=== PATIENT | female | born 1985 | race Caucasian/White ===

== ENCOUNTER → 2018-03-18 | Outpatient (CLI) | payer SELFPAY ==
[~2018-03-18] MED LIST: NORCO 325 MG-51 TAB PO; SYNTHROID0.075 MG/T PO
== END ==
LOC: COL.RAD 11:51
DX: N93.8 Other specified abnormal uterine and vaginal bleeding (principal)

== ENCOUNTER → 2018-03-29 | Outpatient (CLI) | payer SELFPAY | LOC: COL.RAD 12:38 | DX: R79.89 Other specified abnormal findings of blood chemistry (principal); R10.11 Right upper quadrant pain ==

== ENCOUNTER 2019-10-05 16:25 | Emergency (ER) | payer SELFPAY ==
[~2019-10-05] VITALS: Ht 162.6 cm; Wt 63.2 kg
[2019-10-05 16:27] VITALS: BP 152/79; TEMP 97.7
[2019-10-05] MEDS ORDERED: MEDROL 4MG DOSPA4 MG PO (17:12)
[2019-10-05] MEDS ORDERED: FLEXERIL 1010 MG/TAB PO (17:12)
[2019-10-05] MEDS ORDERED: NORCO 325 MG-51 TAB PO (17:12)
[2019-10-05] MEDS ORDERED: LIDODERM 5% PATC1 EA TP (17:12)
[2019-10-05 17:38] VITALS: PULSE 106
== END 2019-10-05 17:38 | disposition home or self-care (01) ==
LOC: COL.ER 16:25
DX: M54.12 Radiculopathy, cervical region (principal)
CPT/HCPCS: J7512

== ENCOUNTER → 2021-07-17 | Outpatient (CLI) | payer SELFPAY ==
[~2021-07-17] MED LIST changes: +FLEXERIL 1010 MG/TAB PO; +LIDODERM 5% PATC1 EA TP; +MEDROL 4MG DOSPA4 MG PO
== END ==
LOC: COL.RAD 06:59
DX: E06.3 Autoimmune thyroiditis (principal)

== ENCOUNTER 2021-08-26 14:27 | Emergency (ER) | payer SELFPAY ==
[~2021-08-26] VITALS: Ht 162.6 cm; Wt 59.1 kg
[2021-08-26 15:06] VITALS: TEMP 98.1
[2021-08-26 19:06] LABS: BASO # 0.1 K/mm3 (0.0-0.2); BASO % 0.4 % (0.0-2.0); EOS # 0.1 K/mm3 (0.0-0.7); EOS % 0.7 % (0.0-4.0); HEMATOCRIT 38.3 % (37.0-47.0); HEMOGLOBIN 13.4 g/dl (12.5-16.0); LYMPH # 3.3 K/mm3 (1.2-3.4); LYMPH % 24.8 % (20.0-51.0); MEAN CELL VOLUME 90 fl (80.0-100.0); MEAN CORPUSCULAR HEMOGLOBIN 31 pg (27-31); MEAN CORPUSCULAR HGB CONC 35 g/dl (33.0-37.0); MEAN PLATELET VOLUME 10.2 fl (7.4-10.4); MONO # 0.8 K/mm3 (0.1-0.6); MONO % 5.8 % (1.7-9.3); PLATELET COUNT 266 K/mm3 (130-400); RED BLOOD COUNT 4.27 M/mm3 (4.10-5.30); REDCELL DISTRIBUTION WIDTH-CV 12.3 % (11.5-14.5)
[2021-08-26 19:24] LABS: ALANINE AMINOTRANSFERASE 11 U/L (0-55); ALBUMIN 4.5 gm/dL (3.5-5.0); ALKALINE PHOSPHATASE 46 U/L (40-150); ANION GAP 13 mmol/L (7-16); AST,SGOT 18 U/L (5-34); BILIRUBIN,TOTAL 0.4 mg/dL (0.2-1.2); BLOOD UREA NITROGEN 11 mg/dL (7-19); CALCIUM 9.3 mg/dL (8.4-10.2); CARBON DIOXIDE 21 mmol/L (22-29); CHLORIDE 107 mmol/L (98-107); CREATININE, serum 0.74 mg/dL (0.57-1.11); GLUCOSE 88 mg/dL (70-99); POTASSIUM 3.4 mmol/L (3.5-4.5); SODIUM 141 mmol/L (136-145); TOTAL PROTEIN 7.5 gm/dL (6.2-8.1)
[2021-08-26 19:31] LABS: TROPONIN-I < 0.010 ng/mL (0.00-0.033)
[2021-08-26 20:45] LABS: COLLECTION METHOD CLEAN CATCH
[2021-08-26 20:59] LABS: MUCOUS Present (NOT PRESENT); PH 6 (5-8); SQUAMOUS EPITHELIAL 0-2 /hpf (0-10); URINE APPEARANCE Hazy (CLEAR/HAZY); URINE BACTERIA Rare /hpf (NONE SEEN); URINE BILIRUBIN Negative (NEGATIVE); URINE BLOOD Negative (NEGATIVE); URINE COLOR Yellow (YELLOW); URINE GLUCOSE Negative (NEGATIVE); URINE KETONE Negative (NEGATIVE); URINE LEUKOCYTE ESTERASE Negative (NEGATIVE); URINE NITRATE Negative (NEGATIVE); URINE PROTEIN(semi-quant) Negative (NEGATIVE); URINE RBC 20-50 /hpf (0-2); URINE UROBILINOGEN Negative (NEGATIVE)
[2021-08-26] MEDS ORDERED: PROAIR HFA0.09 MG/AC IH (22:28)
[2021-08-26 22:38] VITALS: BP 142/93; PULSE 87
== END 2021-08-26 22:38 | disposition home or self-care (01) ==
LOC: COL.ER 14:27
PROVIDERS: Nurse Practitioner Primary Care; Personal Emergency Response Attendant
DX: J98.01 Acute bronchospasm (principal); B34.9 Viral infection, unspecified; E07.9 Disorder of thyroid, unspecified; Z79.890 Hormone replacement therapy
CPT/HCPCS: Q9967

== ENCOUNTER 2021-09-16 17:59 | Emergency (ER) | payer BC ==
[~2021-09-16] VITALS: Ht 160 cm; Wt 59.1 kg
[~2021-09-16 17:59] MED LIST changes: +PROAIR HFA0.09 MG/AC IH
[2021-09-16 18:28] VITALS: TEMP 98.7
[2021-09-16 18:41] LABS: COLLECTION METHOD CLEAN CATCH
[2021-09-16 18:48] LABS: PH 7 (5-8); SQUAMOUS EPITHELIAL None Seen /hpf (0-10); URINE APPEARANCE Clear (CLEAR/HAZY); URINE BACTERIA None Seen /hpf (NONE SEEN); URINE BILIRUBIN Negative (NEGATIVE); URINE BLOOD 1+ (NEGATIVE); URINE COLOR Colorless (YELLOW); URINE GLUCOSE Negative (NEGATIVE); URINE KETONE Negative (NEGATIVE); URINE LEUKOCYTE ESTERASE Negative (NEGATIVE); URINE NITRATE Negative (NEGATIVE); URINE PROTEIN(semi-quant) Negative (NEGATIVE); URINE RBC None Seen /hpf (0-2); URINE UROBILINOGEN Negative (NEGATIVE)
[2021-09-16 19:01] LABS: BASO # 0.1 K/mm3 (0.0-0.2); BASO % 0.6 % (0.0-2.0); EOS % 0.3 % (0.0-4.0); GRAN # 7.2 K/mm3 (1.4-6.5); GRAN % 70.5 % (42.2-75.2); HEMATOCRIT 39.5 % (37.0-47.0); HEMOGLOBIN 13.8 g/dl (12.5-16.0); LYMPH # 2.1 K/mm3 (1.2-3.4); LYMPH % 20.2 % (20.0-51.0); MEAN CELL VOLUME 91 fl (80.0-100.0); MEAN CORPUSCULAR HEMOGLOBIN 32 pg (27-31); MEAN CORPUSCULAR HGB CONC 35 g/dl (33.0-37.0); MEAN PLATELET VOLUME 10.4 fl (7.4-10.4); MONO # 0.8 K/mm3 (0.1-0.6); MONO % 8.1 % (1.7-9.3); PLATELET COUNT 351 K/mm3 (130-400); RED BLOOD COUNT 4.36 M/mm3 (4.10-5.30); REDCELL DISTRIBUTION WIDTH-CV 12.1 % (11.5-14.5)
[2021-09-16 19:10] LABS: ALBUMIN 4.8 gm/dL (3.5-5.0); CALCIUM 10.3 mg/dL (8.4-10.2); CREATININE, serum 1.05 mg/dL (0.57-1.11); POTASSIUM 3.5 mmol/L (3.5-4.5); TOTAL PROTEIN 8.2 gm/dL (6.2-8.1)
[2021-09-16] MEDS ORDERED: NORCO 325 MG-51 TAB PO (20:01)
[2021-09-16] MEDS ORDERED: ZOFRAN 4MG T4 MG/TAB PO (20:01)
[2021-09-16 20:14] VITALS: BP 126/86; PULSE 89
== END 2021-09-16 20:14 | disposition home or self-care (01) ==
LOC: COL.ER 17:59
PROVIDERS: Nurse Practitioner Primary Care
DX: N13.2 Hydronephrosis with renal and ureteral calculous obstruction (principal); E07.9 Disorder of thyroid, unspecified; Z32.02 Encounter for pregnancy test, result negative; Z79.890 Hormone replacement therapy
CPT/HCPCS: J1885; J2405; J7030; Q9967